=== PATIENT | male | born 1965 | race Caucasian/White ===

== ENCOUNTER → 2016-04-21 | Outpatient (REF) ==
--- NOTE | 2016-04-21 11:50 | DI ---
EXAM: Chest two view, frontal and lateral views. HISTORY: Annual employment screening. COMPARISON: 06/30/2014. FINDINGS: The heart size is normal. There is no pulmonary vascular congestion. The lungs are johnny r. No pleural effusion or pneumothorax is seen. No acute osseous abnormality identified. Since prior study, there has been no significant interval change. IMPRESSION: No acute cardiopulmonary process.
== END ==
LOC: RAD 10:54
DX: Z02.89 Encounter for other administrative examinations (principal)

== ENCOUNTER 2016-08-13 10:36 | Outpatient (CLI) ==
--- NOTE | 2016-08-13 11:04 | DI ---
EXAM: Three views of the right elbow HISTORY: Right elbow injury COMPARISON: None available FINDINGS: No acute fracture or dislocation is identified. There is no evidence of a joint effusion. An 8 mm ossicle projects anterior to the distal humerus on the lateral view. A 4 mm ossicle projects development team lead ior to the distal humerus on the lateral view. There is mild to moderate marginal osteophyte formati on of the radial head. There is mild to moderate marginal osteophyte formation of the medial aspect of the ulnotrochlear joint. IMPRESSION: No acute osseous abnormality identified. Ossicles suspicious for joint bodies. Mild to moderate degenerative joint disease.
== END 2016-08-13 10:37 | disposition home or self-care (01) ==
LOC: RAD 10:36
PROVIDERS: ATTEND Family Medicine
DX: S59.901A Unspecified injury of right elbow, initial encounter (principal)

== ENCOUNTER 2018-04-15 14:00 | Outpatient (RCR) ==
--- NOTE | 2018-03-17 16:23 | RS.OPPTDN ---
Subjective Date of Note: 03/17/18 Visit #: 4 Number of visits approved by Insurance: [id number] Date of Evaluation: 03/11/18 Payer Source: Workman's Comp Treatment Diagnosis: R elbow pain, DJD, elbow flex contracture, intraarticular loose bodies Current Subjective/complaints:: Patient says he has had soreness to the elbow with self stretching at home and here in PT. He says he has a 10# restriction lifting floor to chest for the R arm. He states that he is not wanting to hurry his therapy, but does want to get better soon so that he can return to as near "100%" as possible. He reports his follow up is 04/07/18. *Precautions: n/a - Heat/Cryotherapy Treatment: Hot Pack (15 mins over the biceps/elbow in extension stretch position in sitting) Interventions - Exercise/Activities/Manual Therapy Exercises/Activities: Patient receives passive stretching for R elbow flex/ext/ sup/pron. Elbow distraction for improving ROM multiple reps. Joint mobs for dorsal glides proximally and distally. Contract/relax techniques cycled with more ROM. 2# dumbell for static extension stretching for 20-30 sec intervals. Began 2# for sup/pron with stretches and elbow extension stretch with performing wrist curls/ext. Wrist/elbow twist up bar using 2# x 4 to encourage elbow extension. Total minutes of Exercise: 24 Manual Therapy: n/a HOME EXERCISE PROGRAM: instructed pt on retrograde massage to decrease edema, as well as gentle scar massage. Given written HEP including: sup/pronation, elbow flex resisted, isometric flex/ext contract relax - Charges Timed Code Treatment Minutes: 24 Total Treatment Time: 39 Procedures billed for this date of service:: hp, ex2 Assessment: Patient adam increased stretching and joint mobs today as well as some progressive activity. He is compliant with HEP at this time and is motivated to improve ROM and strength to return to routine for work and home. Patient Education: Education of diagnosis, Home Exercise Program, Education of Plan of Care Patient demonstrates compliance with HEP?: Yes Short Term Goals Goal #1: pt independent with initial HEP Goal to be met by: 04/01/18 Progress towards Goal:: Progressing Goal #2: Improve R elbow ROM flex 115 ext -8 Goal to be met by: 04/01/18 Progress towards Goal:: Progressing Goal #3: Improve strength R elbow 4-/5, ext 3/5 Goal to be met by: 04/01/18 Shelter Goals Goal #1: pt report ability to perform normal household activities with less pain Goal to be met by: 04/22/18 Goal #2: Improve R elbow ROM flex 120 ext -4 Goal to be met by: 04/22/18 Goal #3: Improve R UE strength 4 to 4+/5 Goal to be met by: 04/22/18 Goal #4: Edema R UE decreased equal to LUE. Goal to be met by: 04/22/18 Plan Dates of Shelter Goals: 04/22/18 Expiration date of current Insurance Approval:: 04/22/18 PLAN: Patient to continue with progressive stretching to the R UE to restore ROM and then advance to strengthening.
--- NOTE | 2018-03-19 16:45 | RS.OPPTDN ---
Subjective Date of Note: 03/19/18 Visit #: 5 Number of visits approved by Insurance: [id number] Date of Evaluation: 03/11/18 Payer Source: Workman's Comp Treatment Diagnosis: R elbow pain, DJD, elbow flex contracture, intraarticular loose bodies Current Subjective/complaints:: Patient states he has been self stretching at home and feels he is gaining motion to the R elbow. 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 *Precautions: n/a - Heat/Cryotherapy Treatment: Hot Pack (to the R elbow in extension stretch position with pt intermittently stretching x 15 mins) Interventions - Exercise/Activities/Manual Therapy Exercises/Activities: Patient receives passive stretching for R elbow flex/ext/ sup/pron. Elbow distraction for improving ROM multiple reps. Joint mobs for dorsal glides proximally and distally. Contract/relax techniques cycled with more ROM. 2# dumbell for static extension stretching for 20-30 sec intervals. Continued with 2# for sup/pron with stretches and elbow extension stretch with performing wrist curls/ext. Also, holding ball bilaterally behind head with 1 1 /2# cuff weight to the R wrist to stretch into flexion/extension x 5. Risk Control Product Liability Director and ROM measured at end of session. Total minutes of Exercise: 32 Manual Therapy: n/a HOME EXERCISE PROGRAM: instructed pt on retrograde massage to decrease edema, as well as gentle scar massage. Given written HEP including: sup/pronation, elbow flex resisted, isometric flex/ext contract relax - Charges Timed Code Treatment Minutes: 32 Total Treatment Time: 47 Procedures billed for this date of service:: hp, ex2 Assessment: Improved elbow extension AA today to -7 after therex. Patient pleased also with customer experience analyst strength at 2nd position for the R hand to 78-80# for 3 attempts. Patient continues to be compliant with HEP and stretching to improve symptoms to reach goals. Patient demonstrates compliance with HEP?: Yes Short Term Goals Goal #1: pt independent with initial HEP Goal to be met by: 04/01/18 Progress towards Goal:: Progressing Goal #2: Improve R elbow ROM flex 115 ext -8 Goal to be met by: 04/01/18 Progress towards Goal:: Progressing Goal #3: Improve strength R elbow 4-/5, ext 3/5 Goal to be met by: 04/01/18 Shelter Goals Goal #1: pt report ability to perform normal household activities with less pain Goal to be met by: 04/22/18 Goal #2: Improve R elbow ROM flex 120 ext -4 Goal to be met by: 04/22/18 Goal #3: Improve R UE strength 4 to 4+/5 Goal to be met by: 04/22/18 Goal #4: Edema R UE decreased equal to LUE. Goal to be met by: 04/22/18 Plan Dates of Shelter Goals: 04/22/18 Expiration date of current Insurance Approval:: 04/22/18 PLAN: Patient to continue stretching to the R UE to improve ROM and strength
--- NOTE | 2018-03-24 15:32 | RS.OPPTDN ---
Subjective Date of Note: 03/24/18 Visit #: 7 Number of visits approved by Insurance: [id number] Date of Evaluation: 03/11/18 Payer Source: Workman's Comp Treatment Diagnosis: R elbow pain, DJD, elbow flex contracture, intraarticular loose bodies Current Subjective/complaints:: Patient says he still has a lot of pain at the inside of the elbow and below the elbow. He agrees that he can straighten his arm better, but bending is still hard and hurts. Reports elbow popped twice while self stretching at home into extension without producing any symptoms. *Precautions: n/a - Heat/Cryotherapy Treatment: Hot Pack, Cryotherapy (15 mins to R elbow and over biceps prior to therex, then cold after therex x 15 mins) Interventions - Exercise/Activities/Manual Therapy Exercises/Activities: Patient receives passive stretching for R elbow flex/ext/ sup/pron. Elbow distraction for improving ROM multiple reps. Joint mobs for dorsal glides proximally and distally. Contract/relax techniques cycled with more ROM particularly for elbow flexion. 2# coronary clinical specialist ball for static extension stretching for 20-30 sec intervals. Continued with 2# for sup with stretches and elbow extension stretch with performing wrist curls/ext. Also, holding 3# wand bilaterally behind back for elbow and shoulder extension stretch. Wrist roll up bar with 3# x 2. 3# wand for bilateral elbow flexion bilaterally. Finished with cold pack. Total minutes of Exercise: 29 Manual Therapy: n/a HOME EXERCISE PROGRAM: instructed pt on retrograde massage to decrease edema, as well as gentle scar massage. Given written HEP including: sup/pronation, elbow flex resisted, isometric flex/ext contract relax - Charges Timed Code Treatment Minutes: 29 Total Treatment Time: 59 Procedures billed for this date of service:: hp, ex2 Assessment: Patient demo improved observable elbow supination and extension today with heat and static stretching near norm for extension and norm range for sup. Flexion active and passive produces increased pain. Limitation remains with range for this direction. Will measure Thursday. Patient Education: Home Exercise Program, Education of Plan of Care Patient demonstrates compliance with HEP?: Yes Short Term Goals Goal #1: pt independent with initial HEP Goal to be met by: 04/01/18 Progress towards Goal:: Progressing Goal #2: Improve R elbow ROM flex 115 ext -8 Goal to be met by: 04/01/18 Progress towards Goal:: Progressing Goal #3: Improve strength R elbow 4-/5, ext 3/5 Goal to be met by: 04/01/18 Needle Grinder Goals Goal #1: pt report ability to perform normal household activities with less pain Goal to be met by: 04/22/18 Goal #2: Improve R elbow ROM flex 120 ext -4 Goal to be met by: 04/22/18 Goal #3: Improve R UE strength 4 to 4+/5 Goal to be met by: 04/22/18 Goal #4: Edema R UE decreased equal to LUE. Goal to be met by: 04/22/18 Plan Dates of Needle Grinder Goals: 04/22/18 Expiration date of current Insurance Approval:: 04/22/18 PLAN: Continue progressive therex to the R elbow
--- NOTE | 2018-03-24 15:36 | RS.OPPTDN ---
Subjective Date of Note: 03/22/18 Visit #: 6 Number of visits approved by Insurance: na Date of Evaluation: 03/11/18 Payer Source: Workman's Comp Treatment Diagnosis: R elbow pain, DJD, elbow flex contracture, intraarticular loose bodies Current Subjective/complaints:: Patient says his elbow motion seems to be getting better. Reports continued soreness to the medial aspect of the R elbow. He says he has been stretching his arm both directions while sitting at [employer] yesterday. *Precautions: n/a - Heat/Cryotherapy Treatment: Hot Pack (longwise over the volar aspect of the R UE and then around the elbow x 20 mins) Interventions - Exercise/Activities/Manual Therapy Exercises/Activities: Patient receives passive stretching for R elbow flex/ext/ sup/pron. Elbow distraction for improving ROM multiple reps. Joint mobs for dorsal glides proximally and distally. Contract/relax techniques cycled with more ROM. 2# dumbell for static extension stretching for 20-30 sec intervals. Continued with 2# for sup/pron with stretches and elbow extension stretch with performing wrist curls/ext. Also, holding ball bilaterally behind head with 2# cuff weight to the R wrist to stretch into flexion/extension x 5. Wrist roll up bar with 2# x 2. Green tband for resisted elbow extension with elbow at side x 10. All therex in sitting. Total minutes of Exercise: 29 Manual Therapy: n/a HOME EXERCISE PROGRAM: instructed pt on retrograde massage to decrease edema, as well as gentle scar massage. Given written HEP including: sup/pronation, elbow flex resisted, isometric flex/ext contract relax - Charges Timed Code Treatment Minutes: 29 Total Treatment Time: 49 Procedures billed for this date of service:: hp, ex2 Assessment: Patient able to demo norm supination with static stretch using 2# dumbell. Improved elbow extension as well with continued self stretching and following contract/relax. He remains tender and sore along the medial aspect of the forearm and elbow with active elbow flexion and during stretching into elbow ext Patient Education: Home Exercise Program, Education of Plan of Care Patient demonstrates compliance with HEP?: Yes Short Term Goals Goal #1: pt independent with initial HEP Goal to be met by: 04/01/18 Progress towards Goal:: Progressing Goal #2: Improve R elbow ROM flex 115 ext -8 Goal to be met by: 04/01/18 Progress towards Goal:: Progressing Goal #3: Improve strength R elbow 4-/5, ext 3/5 Goal to be met by: 04/01/18 Progress towards Goal:: Progressing Security Intelligence Analyst Goals Goal #1: pt report ability to perform normal household activities with less pain Goal to be met by: 04/22/18 Goal #2: Improve R elbow ROM flex 120 ext -4 Goal to be met by: 04/22/18 Goal #3: Improve R UE strength 4 to 4+/5 Goal to be met by: 04/22/18 Goal #4: Edema R UE decreased equal to LUE. Goal to be met by: 04/22/18 Plan Dates of [facility] Goals: 04/22/18 Expiration date of current Insurance Approval:: 04/22/18 PLAN: Continue therex to the R elbow to improve ROM and strength
--- NOTE | 2018-03-26 15:33 | RS.OPPTDN ---
Subjective Date of Note: 03/26/18 Visit #: 8 Number of visits approved by Insurance: 3x6 Date of Evaluation: 03/11/18 Payer Source: Workman's Comp Treatment Diagnosis: R elbow pain, DJD, elbow flex contracture, intraarticular loose bodies Current Subjective/complaints:: Patient says he believes elbow motion may be better, but still having a lot of soreness to the inside of the elbow. Reports it hurts more to bend the arm than to straighten presently. *Precautions: n/a - Treatment Modality: Ultrasound Parameters/Method Applied: continuous @ 1.5 w/cm2 x 12 mins to the medial and lateral elbow and along the distal triceps tendon. Patient Position: Sitting - Heat/Cryotherapy Treatment: Hot Pack (15 mins to the R elbow in flexed position), Cryotherapy ( Patient requests cold pack to elbow after therex today (x 10 mins)) Interventions - Exercise/Activities/Manual Therapy Exercises/Activities: Concentration on stretching for R elbow flex/ext with contract/relax method. Stretch for supination and joint mobs after u/s. Total minutes of Exercise: 25 Manual Therapy: n/a HOME EXERCISE PROGRAM: instructed pt on retrograde massage to decrease edema, as well as gentle scar massage. Given written HEP including: sup/pronation, elbow flex resisted, isometric flex/ext contract relax - Objective Findings Observations,measurements,etc.: -3 passively, -6 actively. 113 degrees passively, 110 actively (AFTER THEREX) - Charges Timed Code Treatment Minutes: 25 Total Treatment Time: 25 Procedures billed for this date of service:: ex2, hp, u/s Assessment: Modification of treatment today adding u/s to assist with c/o's stiffness and soreness to the medial R elbow. He demo increased mobility to the elbow for flex and extension compared to last week. He appears to adam u/s well with verbalizing improved stiffness and motion. Patient Education: Home Exercise Program Comments: Education on ultrasound, benefits, indications, effects. Patient demonstrates compliance with HEP?: Yes Short Term Goals Goal #1: pt independent with initial HEP Goal to be met by: 04/01/18 Progress towards Goal:: Progressing Goal #2: Improve R elbow ROM flex 115 ext -8 Goal to be met by: 04/01/18 Progress towards Goal:: Partially Met Comments:: -6 to 113 today Goal #3: Improve strength R elbow 4-/5, ext 3/5 Goal to be met by: 04/01/18 Progress towards Goal:: Progressing Hand Decorator Goals Goal #1: pt report ability to perform normal household activities with less pain Goal to be met by: 04/22/18 Goal #2: Improve R elbow ROM flex 120 ext -4 Goal to be met by: 04/22/18 Goal #3: Improve R UE strength 4 to 4+/5 Goal to be met by: 04/22/18 Goal #4: Edema R UE decreased equal to LUE. Goal to be met by: 04/22/18 Plan Dates of Long-Term Goals: 04/22/18 Expiration date of current Insurance Approval:: 04/22/18 PLAN: Continue with u/s and progressive stretching
--- NOTE | 2018-03-29 15:26 | RS.OPPTDN ---
Subjective Date of Note: 03/29/18 Visit #: 9 Number of visits approved by Insurance: [id number] Date of Evaluation: 03/11/18 Payer Source: Workman's Comp Treatment Diagnosis: R elbow pain, DJD, elbow flex contracture, intraarticular loose bodies Current Subjective/complaints:: Patient c/o persistant R medial elbow pain. He says he feels u/s seemed to help. He says flexion still seems to be the hardest to perform (active and passive). *Precautions: n/a - Treatment Modality: Ultrasound Parameters/Method Applied: continuous @ 1.5 w/cm2 x 12 mins to the medial and lateral epicondyle prior to therex. Then pulsed @ 0.6 w/cm2 20% x 5 mins to the olecranon process after therex Patient Position: Sitting Interventions - Exercise/Activities/Manual Therapy Exercises/Activities: Concentration on stretching for R elbow flex/ext with contract/relax method. Stretch for supination and joint mobs after u/s. Ended with more stretching. Avoided other therex to allow u/s to assist with pain decrease and increase ROM with static stretching. Total minutes of Exercise: 22 Manual Therapy: n/a HOME EXERCISE PROGRAM: instructed pt on retrograde massage to decrease edema, as well as gentle scar massage. Given written HEP including: sup/pronation, elbow flex resisted, isometric flex/ext contract relax - Charges Timed Code Treatment Minutes: 39 Total Treatment Time: 39 Procedures billed for this date of service:: u/s, ex Assessment: Patient experiencing slight relief with u/s, but remains with tenderness and pain to the medial aspect of the R elbow. Omitted some therex today to allow modality to help with these symptoms. Patient Education: Education of Plan of Care Patient demonstrates compliance with HEP?: Yes Short Term Goals Goal #1: pt independent with initial HEP Goal to be met by: 04/01/18 Progress towards Goal:: Progressing Goal #2: Improve R elbow ROM flex 115 ext -8 Goal to be met by: 04/01/18 Progress towards Goal:: Partially Met Goal #3: Improve strength R elbow 4-/5, ext 3/5 Goal to be met by: 04/01/18 Progress towards Goal:: Progressing Converter Operator Goals Goal #1: pt report ability to perform normal household activities with less pain Goal to be met by: 04/22/18 Goal #2: Improve R elbow ROM flex 120 ext -4 Goal to be met by: 04/22/18 Goal #3: Improve R UE strength 4 to 4+/5 Goal to be met by: 04/22/18 Goal #4: Edema R UE decreased equal to LUE. Goal to be met by: 04/22/18 Plan Dates of Care Home Goals: 04/22/18 Expiration date of current Insurance Approval:: 04/22/18 PLAN: Patient to continue with u/s and focus on stretching for R UE.
--- NOTE | 2018-04-01 08:45 | RS.OPPTDN ---
Subjective Date of Note: 03/31/18 Visit #: 10 Number of visits approved by Insurance: 3x6 Date of Evaluation: 03/11/18 Payer Source: Workman's Comp Treatment Diagnosis: R elbow pain, DJD, elbow flex contracture, intraarticular loose bodies Current Subjective/complaints:: Patient says he believes u/s is helping reduce pain to the R elbow. He says it is not as tender to the medial aspect of the R elbow and seems to have ability to stretch more into extension. He says his main problem is adam A/P flexion, but continues to work on it routinely at home. *Precautions: n/a Pain Assessment - Pain Description Pain Location: R medial elbow Pain Description: Tightness, Aching - Treatment Modality: Ultrasound Parameters/Method Applied: continuous @ 1.5 w/cm2 x 12 mins to the R medial epicondyle region, then with elbow bent along the ulnar region Patient Position: Sitting - Heat/Cryotherapy Treatment: Hot Pack (15 mins over the R elbow and biceps in extension stretch position with intermittently holding 2#) Interventions - Exercise/Activities/Manual Therapy Exercises/Activities: Concentration on stretching for R elbow flex/ext with contract/relax method to gain mobility. Stretch for supination and joint mobs after u/s as well holding 2# dumbell for static stretches. Ended with more stretching and joint distraction. Continued to omit other therex to allow u/s to assist with pain decrease and increase ROM with static stretching. Total minutes of Exercise: 22 Manual Therapy: n/a HOME EXERCISE PROGRAM: instructed pt on retrograde massage to decrease edema, as well as gentle scar massage. Given written HEP including: sup/pronation, elbow flex resisted, isometric flex/ext contract relax - Charges Timed Code Treatment Minutes: 34 Total Treatment Time: 49 Procedures billed for this date of service:: hp, u/s, ex Assessment: Patient experiencing less tenderness and sensitivity to the R elbow after receiving previous u/s. He demo increased ability to relax with extension , but maintains mild to moderate tightness and pain with active and passive stretching into flexion. We are able to achieve full supination during static stretching and -2 degrees today with extension stretching. Will take more detailed measurements next session as these are approximate and through observation. Patient Education: Education of diagnosis, Home Exercise Program, Education of Plan of Care Patient demonstrates compliance with HEP?: Yes Short Term Goals Goal #1: pt independent with initial HEP Goal to be met by: 04/01/18 Progress towards Goal:: Progressing Goal #2: Improve R elbow ROM flex 115 ext -8 Goal to be met by: 04/01/18 Progress towards Goal:: Progressing Goal #3: Improve strength R elbow 4-/5, ext 3/5 Goal to be met by: 04/01/18 Progress towards Goal:: Progressing Shelter Goals Goal #1: pt report ability to perform normal household activities with less pain Goal to be met by: 04/22/18 Goal #2: Improve R elbow ROM flex 120 ext -4 Goal to be met by: 04/22/18 Goal #3: Improve R UE strength 4 to 4+/5 Goal to be met by: 04/22/18 Goal #4: Edema R UE decreased equal to LUE. Goal to be met by: 04/22/18 Plan Dates of Shelter Goals: 04/22/18 Expiration date of current Insurance Approval:: 04/22/18 PLAN: Patient to continue progressive therex to the R elbow to restore ROM
--- NOTE | 2018-04-02 13:23 | RS.OPPTDN ---
Subjective Date of Note: 04/02/18 Visit #: 11 Number of visits approved by Insurance: 18 Date of Evaluation: 03/11/18 Payer Source: Workman's Comp Treatment Diagnosis: R elbow pain, DJD, elbow flex contracture, intraarticular loose bodies Current Subjective/complaints:: Patient says, "I'm hanging in there." Reports he stretches his arm any chance he gets. He says he is going to look for a heat wrap or sleeve to put on his arm. States he is less tender along the elbow and feels u/s is what is improving his pain/tenderness. *Precautions: n/a - Treatment Modality: Ultrasound Parameters/Method Applied: continuous @ 1.5 w/cm2 x 12 mins to the medial aspect of the R elbow and along the triceps tendon - Heat/Cryotherapy Treatment: Hot Pack (20 mins to the anterior portion of the elbow then posterior in a stretch position) Interventions - Exercise/Activities/Manual Therapy Exercises/Activities: Continued concentration on stretching for R elbow flex/ ext with contract/relax method to gain mobility. Contract/relax techniques for elbow flex/ext. Stretch for supination and joint mobs after u/s as well holding 2# dumbell for static stretches. Ended with more stretching and joint distraction. Continued to omit other therex to allow u/s to assist with pain decrease and increase ROM with static stretching. Measurements taken. Total minutes of Exercise: 25 Manual Therapy: n/a HOME EXERCISE PROGRAM: instructed pt on retrograde massage to decrease edema, as well as gentle scar massage. Given written HEP including: sup/pronation, elbow flex resisted, isometric flex/ext contract relax - Charges Timed Code Treatment Minutes: 37 Total Treatment Time: 57 Procedures billed for this date of service:: hp, u/s, ex2 Assessment: -4 to 122 degrees AAROM after mobilization techniques and stretching. Patient experiencing less tenderness and pain at the medial aspect of the R elbow. Patient Education: Education of diagnosis, Home Exercise Program, Education of Plan of Care Patient demonstrates compliance with HEP?: Yes Short Term Goals Goal #1: pt independent with initial HEP Goal to be met by: 04/01/18 Progress towards Goal:: Progressing Goal #2: Improve R elbow ROM flex 115 ext -8 Goal to be met by: 04/01/18 Progress towards Goal:: Met Goal #3: Improve strength R elbow 4-/5, ext 3/5 Goal to be met by: 04/01/18 Progress towards Goal:: Progressing Chief Nursing Officer Goals Goal #1: pt report ability to perform normal household activities with less pain Goal to be met by: 04/22/18 Goal #2: Improve R elbow ROM flex 120 ext -4 Goal to be met by: 04/22/18 Progress towards goal: Partially Met Comments: Observed today, however this was AA after stretching Goal #3: Improve R UE strength 4 to 4+/5 Goal to be met by: 04/22/18 Progress towards goal: Progressing Goal #4: Edema R UE decreased equal to LUE. Goal to be met by: 04/22/18 Progress towards goal: Progressing Plan Dates of Halfway Goals: 04/22/18 Expiration date of current Insurance Approval:: 04/22/18 PLAN: Patient to continue progressing ROM
--- NOTE | 2018-04-06 11:16 | RS.OPPTDN ---
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 He says he continues to stretch his elbow periodically throughout the day. *Precautions: n/a Pain Assessment - Pain Description Pain Description: Tightness - Treatment Modality: Ultrasound (medial and lateral aspect of the R elbow x 12 mins) Parameters/Method Applied: 1.5 w/cm2 x 12 mins continuous - Heat/Cryotherapy Treatment: Hot Pack (anterior/posterior R UE x 20 mins in extension stretch position) Interventions - Exercise/Activities/Manual Therapy Exercises/Activities: Continued concentration on stretching for R elbow flex/ ext with contract/relax method to gain mobility. Stretch for supination and joint mobs after u/s as well holding 2# dumbell for static stretches. Ended with more stretching and joint distraction. 3# cuff on end of wand for the R elbow to stretch behind the back. Continued to omit other therex to allow u/s to assist with pain decrease and increase ROM with static stretching. Total minutes of Exercise: 26 Manual Therapy: n/a HOME EXERCISE PROGRAM: instructed pt on retrograde massage to decrease edema, as well as gentle scar massage. Given written HEP including: sup/pronation, elbow flex resisted, isometric flex/ext contract relax - Charges Timed Code Treatment Minutes: 38 Total Treatment Time: 58 Procedures billed for this date of service:: hp, u/s, ex2 Assessment: Patient demo improved adam for ROM and stretching for R flexion and extension of elbow. He is consistent with home stretching to gain normal ranges. Decreased pain and tenderness noted at the medial aspect of the elbow and triceps tendon post u/s. Patient Education: Home Exercise Program Patient demonstrates compliance with HEP?: Yes Short Term Goals Goal #1: pt independent with initial HEP Goal to be met by: 04/01/18 Progress towards Goal:: Progressing Goal #2: Improve R elbow ROM flex 115 ext -8 Goal to be met by: 04/01/18 Progress towards Goal:: Met Goal #3: Improve strength R elbow 4-/5, ext 3/5 Goal to be met by: 04/01/18 Progress towards Goal:: Met Comments:: demo this week Retirement Goals Goal #1: pt report ability to perform normal household activities with less pain Goal to be met by: 04/22/18 Progress towards goal: Progressing Goal #2: Improve R elbow ROM flex 120 ext -4 Goal to be met by: 04/22/18 Progress towards goal: Partially Met Comments: Previously met AA after stretching, not consistently met Goal #3: Improve R UE strength 4 to 4+/5 Goal to be met by: 04/22/18 Progress towards goal: Progressing Goal #4: Edema R UE decreased equal to LUE. Goal to be met by: 04/22/18 Progress towards goal: Progressing Plan Dates of Yard Inspector Goals: 04/22/18 Expiration date of current Insurance Approval:: 04/22/18 PLAN: Patient to continue with aggressive stretching for the R UE. He is to return to ortho this week.
--- NOTE | 2018-04-08 15:30 | RS.OPPTDN ---
Subjective Date of Note: 04/08/18 Visit #: 13 Number of visits approved by Insurance: [id number] Date of Evaluation: 03/11/18 Payer Source: [email or web address] Treatment Diagnosis: R elbow pain, DJD, elbow flex contracture, intraarticular loose bodies Current Subjective/complaints:: Patient says he had a good ortho follow up. Reports xray appears to be showing normal healing as it was not addressed. Reports he now has a 20# restriction for the R UE and he is pleased with his motion at this point. Shankar says has ordered BIW until May 31 (next follow up). Will bring his script in tomorrow to be submitted to [facility]. *Precautions: n/a - Heat/Cryotherapy Treatment: Hot Pack (anterior/posterior R UE in extension stretch position x 20 mins) Interventions - Exercise/Activities/Manual Therapy Exercises/Activities: Focused on extension of the R elbow and supination. Stretching also for flexion. Slowly increasing strengthening. Joint mobilization and elbow joint distraction, static stretching for extension using 4# dumbell down at side. Roll up/down bar with 6# x 4. Multigym for forward punches 10# x 10reps. Bilateral lifting 15# weighted box from trunk to floor to increase elbow extension x 8 reps receiving instruction also for proper body mechanics and avoid bending at his back. Total minutes of Exercise: 33 Manual Therapy: n/a HOME EXERCISE PROGRAM: instructed pt on retrograde massage to decrease edema, as well as gentle scar massage. Given written HEP including: sup/pronation, elbow flex resisted, isometric flex/ext contract relax - Charges Timed Code Treatment Minutes: 33 Total Treatment Time: 53 Procedures billed for this date of service:: marifer, ex2 Assessment: Patient had good report from follow up and has an order to continue treatments BIW until 05/31/18, which is his next appt. He is pleased so far with progress, but desires to gain more mobility if possible and strength to prepare him to return to work. He demo progress with gaining elbow extension throughout stretches today and adam all progressive strengthening well without c/ os. Patient Education: Body/Joint mechanics, Home Exercise Program, Education of Plan of Care Patient demonstrates compliance with HEP?: Yes Short Term Goals Goal #1: pt independent with initial HEP Goal to be met by: 04/01/18 Progress towards Goal:: Progressing Goal #2: Improve R elbow ROM flex 115 ext -8 Goal to be met by: 04/01/18 Progress towards Goal:: Met Goal #3: Improve strength R elbow 4-/5, ext 3/5 Goal to be met by: 04/01/18 Progress towards Goal:: Met Porcelain Enameler Goals Goal #1: pt report ability to perform normal household activities with less pain Goal to be met by: 04/22/18 Progress towards goal: Progressing Goal #2: Improve R elbow ROM flex 120 ext -4 Goal to be met by: 04/22/18 Progress towards goal: Partially Met (Patient has recently met flexion goal and does meet extension after stretching) Goal #3: Improve R UE strength 4 to 4+/5 Goal to be met by: 04/22/18 Progress towards goal: Progressing Goal #4: Edema R UE decreased equal to LUE. Goal to be met by: 04/22/18 Progress towards goal: Progressing Plan Dates of Porcelain Enameler Goals: 04/22/18 Expiration date of current Insurance Approval:: 04/22/18 PLAN: Patient to continue with new order BIW. Will submit to work comp.
--- NOTE | 2018-04-09 15:43 | RS.OPPTDN ---
Subjective Date of Note: 04/09/18 Visit #: 14 Number of visits approved by Insurance: 18 Date of Evaluation: 03/11/18 Payer Source: Workman's Comp Treatment Diagnosis: R elbow pain, DJD, elbow flex contracture, intraarticular loose bodies Current Subjective/complaints:: Patient says he has felt no increase in symptoms from progressing therex yesterday. He says that he feels he is gaining elbow extension through PT sessions. He says area of pain remains mostly focused along the inside of his R elbow (pointing to ulnar nerve). *Precautions: n/a - Heat/Cryotherapy Treatment: Hot Pack (anterior/posterior R UE x 15 mins in extension stretch position) Interventions - Exercise/Activities/Manual Therapy Exercises/Activities: Focused on extension of the R elbow and supination. Stretching also for flexion. Slowly increasing strengthening. Joint mobilization and elbow joint distraction, static stretching for extension using 4# dumbell down at side. Roll up/down bar with 6# x 4. Blue tband for elbow extension, horizontal bilateral ABD to accentuate extension, 5# cuff on R wrist holding ball behind head for bilateral elbow flexion/extension, holding 5# wtd therapy wand behind back to stretch for elbow extension. Bilateral lifting 15 # weighted box from trunk to floor to increase elbow extension x 10 reps receiving instruction also for proper body mechanics and avoid bending at his back. Measurements taken. Total minutes of Exercise: 32 Manual Therapy: n/a HOME EXERCISE PROGRAM: instructed pt on retrograde massage to decrease edema, as well as gentle scar massage. Given written HEP including: sup/pronation, elbow flex resisted, isometric flex/ext contract relax - Objective Findings Observations,measurements,etc.: 124 degrees flexion actively and -5/6 degrees actively after stretching, -2 degrees with static stretch. - Charges Timed Code Treatment Minutes: 32 Total Treatment Time: 47 Procedures billed for this date of service:: hp, ex2 Assessment: Patient presents continuation order BIW. He is encouraged to continue aggressive streching at home. He demo continued improvement with ROM especially with thermotherapy and stretching/joint mobs here. Progressing well with strengthening exercises also. Patient Education: Education of Plan of Care Patient demonstrates compliance with HEP?: Yes Short Term Goals Goal #1: pt independent with initial HEP Goal to be met by: 04/01/18 Progress towards Goal:: Progressing Goal #2: Improve R elbow ROM flex 115 ext -8 Goal to be met by: 04/01/18 Progress towards Goal:: Met (Measured on 04/09/18 measuring -5/-6 to 124 degrees) Goal #3: Improve strength R elbow 4-/5, ext 3/5 Goal to be met by: 04/01/18 Progress towards Goal:: Met Retort Feeder Ground [employer] Goals Goal #1: pt report ability to perform normal household activities with less pain Goal to be met by: 04/22/18 Progress towards goal: Progressing Goal #2: Improve R elbow ROM flex 120 ext -4 Goal to be met by: 04/22/18 Progress towards goal: Partially Met (Patient has recently met flexion goal and does meet extension after stretching) Goal #3: Improve R UE strength 4 to 4+/5 Goal to be met by: 04/22/18 Progress towards goal: Progressing Goal #4: Edema R UE decreased equal to LUE. Goal to be met by: 04/22/18 Progress towards goal: Progressing Plan Dates of Retort Feeder Ground [employer] Goals: 04/22/18 Expiration date of current Insurance Approval:: 04/22/18 PLAN: Continue BIW to gain ROM consistently and independently for R UE for extension and strength to assist him in returning to work.
--- NOTE | 2018-04-13 10:51 | RS.OPPTDN ---
Subjective Date of Note: 04/12/18 Visit #: 15 Number of visits approved by Insurance: continuation order, but is approved for 18 currently Date of Evaluation: 03/11/18 Payer Source: Workman's Comp Treatment Diagnosis: R elbow pain, DJD, elbow flex contracture, intraarticular loose bodies Current Subjective/complaints:: Patient says his arm is "staying straighter." Reports he is able to bend his elbow with a little less pain. *Precautions: n/a - Heat/Cryotherapy Treatment: Hot Pack (anterior/posterior R UE x 15 mins in sitting) Interventions - Exercise/Activities/Manual Therapy Exercises/Activities: Stretching for extension/supination for R UE. Stretching also for flexion. Slowly increasing strengthening. Joint mobilization and elbow joint distraction, static stretching for extension using 4# dumbell down at side. Roll up/down bar with 6# x 4. Blue tband for elbow extension, horizontal bilateral ABD to accentuate extension, 5# cuff on R wrist holding ball behind head for bilateral elbow flexion/extension, holding 5# wtd therapy wand behind back to stretch for elbow extension. Bilateral lifting 15# weighted box from trunk to floor to increase elbow extension x 10 reps receiving instruction also for proper body mechanics and avoid bending at his back. Multi gym for 10# forward punches and for biceps x 10 reps. Ended with wall push ups with hands at shoulder width and then with hands together. Measurements taken. Total minutes of Exercise: 29 Manual Therapy: n/a HOME EXERCISE PROGRAM: instructed pt on retrograde massage to decrease edema, as well as gentle scar massage. Given written HEP including: sup/pronation, elbow flex resisted, isometric flex/ext contract relax - Charges Timed Code Treatment Minutes: 29 Total Treatment Time: 44 Procedures billed for this date of service:: hp, ex2 Assessment: Continued improvement with progressed activity. He is presenting with more consistent elbow extension WFL. Less tender along ulnar nerve as well during most exercises. Patient Education: Home Exercise Program, Education of Plan of Care Patient demonstrates compliance with HEP?: Yes Short Term Goals Goal #1: pt independent with initial HEP Goal to be met by: 04/01/18 Progress towards Goal:: Progressing Goal #2: Improve R elbow ROM flex 115 ext -8 Goal to be met by: 04/01/18 Progress towards Goal:: Met (Measured on 04/09/18 measuring -5/-6 to 124 degrees) Goal #3: Improve strength R elbow 4-/5, ext 3/5 Goal to be met by: 04/01/18 Progress towards Goal:: Met [facility] Goals Goal #1: pt report ability to perform normal household activities with less pain Goal to be met by: 04/22/18 Progress towards goal: Progressing Goal #2: Improve R elbow ROM flex 120 ext -4 Goal to be met by: 04/22/18 Progress towards goal: Partially Met (Patient has recently met flexion goal and does meet extension after stretching) Goal #3: Improve R UE strength 4 to 4+/5 Goal to be met by: 04/22/18 Progress towards goal: Progressing Goal #4: Edema R UE decreased equal to LUE. Goal to be met by: 04/22/18 Progress towards goal: Progressing Plan Dates of Mcfp Goals: 04/22/18 Expiration date of current Insurance Approval:: 04/22/18 PLAN: Continue progressing strengthening to the R UE
--- NOTE | 2018-04-15 15:27 | RS.OPPTDN ---
Subjective Date of Note: 04/15/18 Visit #: 16 Number of visits approved by Insurance: 18 Date of Evaluation: 03/11/18 Payer Source: Work[employer]'s [employer] Treatment Diagnosis: R elbow pain, DJD, elbow flex contracture, intraarticular loose bodies Current Subjective/complaints:: Patient says he is still working on HEP. States he continues to feel soreness at the medial R elbow and points to ulnar nerve tunnel with bending his elbow and at times with extension. *Precautions: n/a - Heat/Cryotherapy Treatment: Hot Pack (surrounding the R elbow/biceps in extension stretch position x 15 mins) Interventions - Exercise/Activities/Manual Therapy Exercises/Activities: Stretching for passive extension/supination for R UE. Stretching also for flexion. Patient holding 4# dumbell for static streching for the above directions. Joint mobilization and elbow joint distraction. 4# dumbell for wrist flex/ext x 12 reps. Holding 4# dumbell at side for extension. Roll up/down bar with 6# x 4 reps. Blue tband for elbow extension/ flexion, horizontal bilateral ABD to accentuate extension, 5# cuff on R wrist holding ball behind head for bilateral elbow flexion/extension, holding 5# wtd therapy wand behind back to stretch for elbow extension. Multi gym for 10# forward punches and for biceps/triceps x 10 reps. Ended with wall push ups with hands at shoulder width and then with hands together. Total minutes of Exercise: 35 Manual Therapy: n/a HOME EXERCISE PROGRAM: instructed pt on retrograde massage to decrease edema, as well as gentle scar massage. Given written HEP including: sup/pronation, elbow flex resisted, isometric flex/ext contract relax - Charges Timed Code Treatment Minutes: 35 Total Treatment Time: 50 Procedures billed for this date of service:: hp, ex2 Assessment: Patient progressing with end range extension, but does show more limited elbow flexion today possibly due to drop in colder temperatures. He continues to consistently perform HEP and does not intend to return to work at the job he previously had due to his limitations. Patient Education: Education of diagnosis, Home Exercise Program, Education of Plan of Care Patient demonstrates compliance with HEP?: Yes Short Term Goals Goal #1: pt independent with initial HEP Goal to be met by: 04/01/18 Progress towards Goal:: Progressing Goal #2: Improve R elbow ROM flex 115 ext -8 Goal to be met by: 04/01/18 Progress towards Goal:: Met (Measured on 04/09/18 measuring -5/-6 to 124 degrees) Goal #3: Improve strength R elbow 4-/5, ext 3/5 Goal to be met by: 04/01/18 Progress towards Goal:: Met [facility] Goals Goal #1: pt report ability to perform normal household activities with less pain Goal to be met by: 04/22/18 Progress towards goal: Progressing Goal #2: Improve R elbow ROM flex 120 ext -4 Goal to be met by: 04/22/18 Progress towards goal: Partially Met (Patient has recently met flexion goal and does meet extension after stretching) Goal #3: Improve R UE strength 4 to 4+/5 Goal to be met by: 04/22/18 Progress towards goal: Progressing Goal #4: Edema R UE decreased equal to LUE. Goal to be met by: 04/22/18 Progress towards goal: Progressing Plan Dates of Judo Teacher Goals: 04/22/18 Expiration date of current Insurance Approval:: 04/22/18 PLAN: Continue x 2 more sessions progressing ROM and strength.
== END 2018-04-15 23:59 ==
PROVIDERS: ATTEND Neuromusculoskeletal Medicine, Sports Medicine
DX: M25.521 Pain in right elbow (principal); M25.621 Stiffness of right elbow, not elsewhere classified; M62.81 Muscle weakness (generalized); M25.421 Effusion, right elbow; M19.021 Primary osteoarthritis, right elbow; Z98.890 Other specified postprocedural states

== ENCOUNTER 2018-05-13 13:00 | Outpatient (RCR) ==
--- NOTE | 2018-04-22 16:34 | RS.OPPTDN ---
Subjective Date of Note: 04/19/18 Visit #: 17 Number of visits approved by Insurance: 18 Date of Evaluation: 03/11/18 Payer Source: Workman's Comp Treatment Diagnosis: R elbow pain, DJD, elbow flex contracture, intraarticular loose bodies Current Subjective/complaints:: Patient says he is feeling less tenderness at the R medial elbow (along ulnar nerve region), but is achy and stiff today he feels weather related. *Precautions: n/a Interventions - Exercise/Activities/Manual Therapy Exercises/Activities: Stretching for passive extension/supination for R UE. Stretching also for flexion. Patient holding 5# dumbell for static streching for the above directions. Joint mobilization and elbow joint distraction. 5# dumbell for wrist flex/ext x 12 reps. Holding 5# dumbell at side for extension. Roll up/down bar with 6# x 4 reps. Blue tband for elbow extension/ flexion, horizontal bilateral ABD to accentuate extension, and forward punches, 4# cuff on R hand and bouncing ball against the wall high level and then on floor x 20 reps., wall push ups and self stretching for both elbow flexion/ extension. Multi gym for 10# forward punches and for biceps/triceps x 10 reps. Lifting 25# box with good body mechanics from trunk to floor level 2x 15reps. Total minutes of Exercise: 45 Manual Therapy: n/a HOME EXERCISE PROGRAM: instructed pt on retrograde massage to decrease edema, as well as gentle scar massage. Given written HEP including: sup/pronation, elbow flex resisted, isometric flex/ext contract relax - Charges Timed Code Treatment Minutes: 45 Total Treatment Time: 45 Procedures billed for this date of service:: ex3 Assessment: Patient is improving demo increased clinical program coordinator strength to 80# from 65# a few weeks ago. He continues to have tenderness at the ulnar nerve region. He is demo increased strength with all therex building on improved elbow extension. Patient Education: Education of diagnosis, Home Exercise Program, Education of Plan of Care Patient demonstrates compliance with HEP?: Yes Short Term Goals Goal #1: pt independent with initial HEP Goal to be met by: 04/01/18 Progress towards Goal:: Progressing Goal #2: Improve R elbow ROM flex 115 ext -8 Goal to be met by: 04/01/18 Progress towards Goal:: Met (Measured on 04/09/18 measuring -5/-6 to 124 degrees) Goal #3: Improve strength R elbow 4-/5, ext 3/5 Goal to be met by: 04/01/18 Progress towards Goal:: Met Ladle Cleaner Goals Goal #1: pt report ability to perform normal household activities with less pain Goal to be met by: 04/22/18 Progress towards goal: Progressing Goal #2: Improve R elbow ROM flex 120 ext -4 Goal to be met by: 04/22/18 Progress towards goal: Partially Met (Patient has recently met flexion goal and does meet extension after stretching) Goal #3: Improve R UE strength 4 to 4+/5 Goal to be met by: 04/22/18 Progress towards goal: Progressing Goal #4: Edema R UE decreased equal to LUE. Goal to be met by: 04/22/18 Progress towards goal: Progressing Plan Dates of Mcc Goals: 04/22/18 Expiration date of current Insurance Approval:: 04/22/18 PLAN: Continue with further strengthening to the R UE
--- NOTE | 2018-04-23 15:28 | RS.OPPTDN ---
Subjective Date of Note: 04/22/18 Visit #: 18 Number of visits approved by Insurance: New approval per continuation order BIW Date of Evaluation: 03/11/18 Payer Source: Workman's Comp Treatment Diagnosis: R elbow pain, DJD, elbow flex contracture, intraarticular loose bodies Current Subjective/complaints:: Patient offers no new c/os. He says he seems to be able to use the arm more with daily tasks and with helping his son at his new home. *Precautions: n/a Interventions - Exercise/Activities/Manual Therapy Exercises/Activities: Stretching for passive extension/supination for R UE. Stretching also for flexion. Patient holding 5# dumbell for static streching for the above directions. Joint mobilization and elbow joint distraction. 5# dumbell for wrist flex/ext x 12 reps. Holding 5# dumbell at side for extension. Roll up/down bar with 6# x 4 reps. Blue tband for elbow extension/ flexion, horizontal bilateral ABD to accentuate extension, and forward punches, 4# cuff on R hand and bouncing ball against the wall high level and then on floor x 20 reps., wall push ups and self stretching for both elbow flexion/ extension. Multi gym for 10# forward punches and for biceps/triceps x 10 reps. Lifting 25# box with good body mechanics from trunk to floor level 2x 15reps. Total minutes of Exercise: 40 Manual Therapy: n/a HOME EXERCISE PROGRAM: instructed pt on retrograde massage to decrease edema, as well as gentle scar massage. Given written HEP including: sup/pronation, elbow flex resisted, isometric flex/ext contract relax - Charges Timed Code Treatment Minutes: 40 Total Treatment Time: 40 Procedures billed for this date of service:: ex3 Assessment: Patient demo 45/80 or 44% impairment compared to 37/80 or 54% at [facility] on UE Functional Index. Greatest limitations remain with "carrying small suitcase, opening a jar, vacuuming, and pushing up from chair." He has had 3 areas in which he has no difficulty now. Inspector Water Pollution Control increased to 80# on the R and 100 # on the L. This is up by 15# from last measurment ~1 1/2 weeks ago. Patient demonstrates compliance with HEP?: Yes Short Term Goals Goal #1: pt independent with initial HEP Goal to be met by: 04/01/18 Progress towards Goal:: Progressing Goal #2: Improve R elbow ROM flex 115 ext -8 Goal to be met by: 04/01/18 Progress towards Goal:: Met (Measured on 04/09/18 measuring -5/-6 to 124 degrees) Goal #3: Improve strength R elbow 4-/5, ext 3/5 Goal to be met by: 04/01/18 Progress towards Goal:: Met Jail Goals Goal #1: pt report ability to perform normal household activities with less pain Goal to be met by: 04/22/18 Progress towards goal: Progressing Goal #2: Improve R elbow ROM flex 120 ext -4 Goal to be met by: 04/22/18 Progress towards goal: Partially Met (Patient has recently met flexion goal and does meet extension after stretching) Goal #3: Improve R UE strength 4 to 4+/5 Goal to be met by: 04/22/18 Progress towards goal: Met Goal #4: Edema R UE decreased equal to LUE. Goal to be met by: 04/22/18 Progress towards goal: Progressing Plan Dates of Jail Goals: 04/22/18 Expiration date of current Insurance Approval:: 04/22/18 PLAN: Patient has new continuation BIW dated 04/07/18 x 6 weeks and authorized by work comp on 04/20/18
--- NOTE | 2018-04-27 15:54 | RS.OPPTDN ---
Subjective Date of Note: 04/27/18 Visit #: 19 Number of visits approved by Insurance: 30 with continuation Date of Evaluation: 03/11/18 Payer Source: Workman's Comp Treatment Diagnosis: R elbow pain, DJD, elbow flex contracture, intraarticular loose bodies Current Subjective/complaints:: Patient c/o increased R lateral elbow pain. He says he was helping his son with removing joo and is sore. He says initially his elbow had decreased extension, but has improved throughout the day. He requests heat today to decrease sx. *Precautions: n/a - Heat/Cryotherapy Treatment: Hot Pack (surrounding the lateral surface of the R UE x 15 mins) Interventions - Exercise/Activities/Manual Therapy Exercises/Activities: Stretching for passive extension/supination for R UE. Stretching also for flexion. Patient holding 5# dumbell for static streching for the above directions. Joint mobilization and elbow joint distraction. 5# dumbell for wrist flex/ext x 12 reps. Holding 5# dumbell at side for extension. Blue tband for triceps/biceps, and horizontal abd in standing. Total minutes of Exercise: 22 Manual Therapy: n/a HOME EXERCISE PROGRAM: instructed pt on retrograde massage to decrease edema, as well as gentle scar massage. Given written HEP including: sup/pronation, elbow flex resisted, isometric flex/ext contract relax - Charges Timed Code Treatment Minutes: 22 Total Treatment Time: 37 Procedures billed for this date of service:: tutu caicedo Assessment: Patient with increased pain from over the weekend performing home remodeling tasks with son. He received heat today to relax and improve pain as well as to adam therex better. Modified therex activity today. Patient Education: Activity Modification Short Term Goals Goal #1: pt independent with initial HEP Goal to be met by: 04/01/18 Progress towards Goal:: Progressing Goal #2: Improve R elbow ROM flex 115 ext -8 Goal to be met by: 04/01/18 Progress towards Goal:: Met (Measured on 04/09/18 measuring -5/-6 to 124 degrees) Goal #3: Improve strength R elbow 4-/5, ext 3/5 Goal to be met by: 04/01/18 Progress towards Goal:: Met Mcfp Goals Goal #1: pt report ability to perform normal household activities with less pain Goal to be met by: 04/22/18 Progress towards goal: Progressing Goal #2: Improve R elbow ROM flex 120 ext -4 Goal to be met by: 04/22/18 Progress towards goal: Partially Met (Patient has recently met flexion goal and does meet extension after stretching) Goal #3: Improve R UE strength 4 to 4+/5 Goal to be met by: 04/22/18 Progress towards goal: Met Goal #4: Edema R UE decreased equal to LUE. Goal to be met by: 04/22/18 Progress towards goal: Progressing Plan Dates of Computer Aide Goals: 06/03/18 Expiration date of current Insurance Approval:: 06/03/18 PLAN: Continue progressive therex to the R UE
--- NOTE | 2018-04-29 15:37 | RS.OPPTDN ---
Subjective Date of Note: 04/29/18 Visit #: 20 Number of visits approved by Insurance: 30 Date of Evaluation: 03/11/18 Payer Source: Workman's Comp Treatment Diagnosis: R elbow pain, DJD, elbow flex contracture, intraarticular loose bodies Current Subjective/complaints:: Patient says his recent elevation in elbow pain has decreased. He says his elbow popped again the other day and provided relief. He says he feels "my arm is not as drawed up." *Precautions: n/a Interventions - Exercise/Activities/Manual Therapy Exercises/Activities: Stretching for passive extension/supination for R UE. Stretching also for flexion. Patient holding 5# dumbell for static streching for the above directions. Joint mobilization and elbow joint distraction. Coats tband for horizontal shoulder abd, 5# PREs for sup/pron, punches, wrist roll up bar with 6#, 6# wand for bilateral shoulder flexion overhead and then 7 # for triceps, Holding 5# dumbell at side for extension. Multigym for forward punches 10#, biceps 10# 2x10, wall push ups x 10. Total minutes of Exercise: 38 Manual Therapy: n/a HOME EXERCISE PROGRAM: instructed pt on retrograde massage to decrease edema, as well as gentle scar massage. Given written HEP including: sup/pronation, elbow flex resisted, isometric flex/ext contract relax - Charges Timed Code Treatment Minutes: 38 Total Treatment Time: 38 Procedures billed for this date of service:: ex3 Assessment: Improved pain level and adam to return of routine therex and multigym activities with also being able to increase weights slightly while maintaining improved elbow extension. Patient Education: Home Exercise Program Patient demonstrates compliance with HEP?: Yes Short Term Goals Goal #1: pt independent with initial HEP Goal to be met by: 04/01/18 Progress towards Goal:: Progressing Goal #2: Improve R elbow ROM flex 115 ext -8 Goal to be met by: 04/01/18 Progress towards Goal:: Met (Measured on 04/09/18 measuring -5/-6 to 124 degrees) Goal #3: Improve strength R elbow 4-/5, ext 3/5 Goal to be met by: 04/01/18 Progress towards Goal:: Met Penitentiary Goals Goal #1: pt report ability to perform normal household activities with less pain Goal to be met by: 04/22/18 Progress towards goal: Progressing Goal #2: Improve R elbow ROM flex 120 ext -4 Goal to be met by: 04/22/18 Progress towards goal: Partially Met (Patient has recently met flexion goal and does meet extension after stretching) Goal #3: Improve R UE strength 4 to 4+/5 Goal to be met by: 04/22/18 Progress towards goal: Met Goal #4: Edema R UE decreased equal to LUE. Goal to be met by: 04/22/18 Progress towards goal: Progressing Plan Dates of Pairer Substandard Goals: 06/03/18 Expiration date of current Insurance Approval:: 06/03/18 PLAN: Patient continue for progressive therex to the R UE
--- NOTE | 2018-05-03 15:17 | RS.OPPTDN ---
Subjective Date of Note: 05/03/18 Visit #: 20 Number of visits approved by Insurance: 28 Date of Evaluation: 03/11/18 Payer Source: Workman's Comp Treatment Diagnosis: R elbow pain, DJD, elbow flex contracture, intraarticular loose bodies Current Subjective/complaints:: Patient c/o increased pain to the R lateral elbow (along the pronator mm belly). 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 Also, admits that the colder weather has affected his pain as well. *Precautions: n/a - Treatment Modality: Ultrasound Parameters/Method Applied: Continuous @ 1.5 w/cm2 x 10 mins along the R pronator teres prior to therex Patient Position: Sitting Interventions - Exercise/Activities/Manual Therapy Exercises/Activities: Stretching for passive extension/supination for R UE. Stretching also for flexion. Patient holding 5# dumbell for static streching for the above directions. Joint mobilization and elbow joint distraction. 5# dumbell for wrist extension/flexion, ulnar/radial deviation x 10. Wrist roll up bar with 7#, 6# wand for bilateral shoulder flexion overhead and then 7# for triceps, 7# bar behind back for elbow/shoulder extension for static stretch. Holding 5# dumbell at side for extension. Multigym for forward punches 10#, biceps, triceps 10# 2x10, wall push ups x 10. Total minutes of Exercise: 33 Manual Therapy: n/a HOME EXERCISE PROGRAM: instructed pt on retrograde massage to decrease edema, as well as gentle scar massage. Given written HEP including: sup/pronation, elbow flex resisted, isometric flex/ext contract relax - Charges Timed Code Treatment Minutes: 43 Total Treatment Time: 43 Procedures billed for this date of service:: ex2, u/s Assessment: Patient presents with increased R lateral UE pain indicated at the pronator teres area. He did have slight relief with u/s, but was irritated by some therex performed today. He was encouraged to be aware and avoid if possible repetitive work which involves pronation to allow rest and u/s to assist with pain relief. Patient Education: Activity Modification Patient demonstrates compliance with HEP?: Yes Short Term Goals Goal #1: pt independent with initial HEP Goal to be met by: 04/01/18 Progress towards Goal:: Progressing Goal #2: Improve R elbow ROM flex 115 ext -8 Goal to be met by: 04/01/18 Progress towards Goal:: Met (Measured on 04/09/18 measuring -5/-6 to 124 degrees) Goal #3: Improve strength R elbow 4-/5, ext 3/5 Goal to be met by: 04/01/18 Progress towards Goal:: Met Slot Machine Key Person Goals Goal #1: pt report ability to perform normal household activities with less pain Goal to be met by: 04/22/18 Progress towards goal: Progressing Goal #2: Improve R elbow ROM flex 120 ext -4 Goal to be met by: 04/22/18 Progress towards goal: Partially Met (Patient has recently met flexion goal and does meet extension after stretching) Goal #3: Improve R UE strength 4 to 4+/5 Goal to be met by: 04/22/18 Progress towards goal: Met Goal #4: Edema R UE decreased equal to LUE. Goal to be met by: 04/22/18 Progress towards goal: Progressing Plan Dates of Detention Goals: 06/03/18 Expiration date of current Insurance Approval:: 06/03/18 PLAN: Continue for elbow extension improvement and strength to the R UE.
--- NOTE | 2018-05-06 15:05 | RS.OPPTDN ---
Subjective Date of Note: 05/06/18 Visit #: 22 Number of visits approved by Insurance: 30 Date of Evaluation: 03/11/18 Payer Source: Workman's Comp Treatment Diagnosis: R elbow pain, DJD, elbow flex contracture, intraarticular loose bodies Current Subjective/complaints:: Patient says the soreness to the R lateral elbow is better, but still present. He says he will have to work on some remodeling activities over the weekend and may have to avoid some tasks. *Precautions: n/a - Treatment Modality: Ultrasound Parameters/Method Applied: continuous @ 1.5 w/cm2 x 12 mins to the R lateral forearm and over the pronator teres Patient Position: Sitting Interventions - Exercise/Activities/Manual Therapy Exercises/Activities: Stretching for passive extension/supination for R UE. Stretching also for flexion. Patient holding 5# dumbell for static streching for the above directions. Joint mobilization and elbow joint distraction. 5# dumbell for wrist extension/flexion, ulnar/radial deviation x 10. Holding 5# dumbell at side for extension. Multigym for forward punches 10#, biceps, triceps 10# 2x10, wall push ups x 10. Lifting 20# box with handles trunk level to overhead with proper body mechanics and being monitored for cues for correction x 7, trunk to floor 20# x 7. Total minutes of Exercise: 31 Manual Therapy: n/a HOME EXERCISE PROGRAM: instructed pt on retrograde massage to decrease edema, as well as gentle scar massage. Given written HEP including: sup/pronation, elbow flex resisted, isometric flex/ext contract relax - Charges Timed Code Treatment Minutes: 43 Total Treatment Time: 43 Procedures billed for this date of service:: u/s, ex2 Assessment: Patient presents with mild soreness to the R lateral forearm along the pronator teres mm belly and at lateral epicondyle. He admits improved pain following u/s and appeared to adam all strengthening therex well. Corrected hand positioning on box handles to avoid forearm pain when lifting to trunk. Patient Education: Body/Joint mechanics Patient demonstrates compliance with HEP?: Yes Short Term Goals Goal #1: pt independent with initial HEP Goal to be met by: 04/01/18 Progress towards Goal:: Progressing Goal #2: Improve R elbow ROM flex 115 ext -8 Goal to be met by: 04/01/18 Progress towards Goal:: Met (Measured on 04/09/18 measuring -5/-6 to 124 degrees) Goal #3: Improve strength R elbow 4-/5, ext 3/5 Goal to be met by: 04/01/18 Progress towards Goal:: Met Silk Opener Goals Goal #1: pt report ability to perform normal household activities with less pain Goal to be met by: 04/22/18 Progress towards goal: Progressing Goal #2: Improve R elbow ROM flex 120 ext -4 Goal to be met by: 04/22/18 Progress towards goal: Partially Met (Patient has recently met flexion goal and does meet extension after stretching) Goal #3: Improve R UE strength 4 to 4+/5 Goal to be met by: 04/22/18 Progress towards goal: Met Goal #4: Edema R UE decreased equal to LUE. Goal to be met by: 04/22/18 Progress towards goal: Progressing Plan Dates of Alf Goals: 06/03/18 Expiration date of current Insurance Approval:: 06/03/18 PLAN: Patient to continue with order to further strengthen the R UE
== END 2018-05-13 23:59 ==
PROVIDERS: ATTEND Neuromusculoskeletal Medicine, Sports Medicine
DX: M25.521 Pain in right elbow (principal); M25.621 Stiffness of right elbow, not elsewhere classified; M19.021 Primary osteoarthritis, right elbow; M62.81 Muscle weakness (generalized); M25.421 Effusion, right elbow; Z98.890 Other specified postprocedural states

== ENCOUNTER 2018-06-03 13:00 | Outpatient (RCR) ==
--- NOTE | 2018-05-17 14:28 | RS.OPPTDN ---
Subjective Date of Note: 05/17/18 Visit #: 25 Number of visits approved by Insurance: 30 Date of Evaluation: 03/11/18 Payer Source: Workman's Comp Treatment Diagnosis: R elbow pain, DJD, elbow flex contracture, intraarticular loose bodies Current Subjective/complaints:: Patient says he did some work over the weekend, but pretty much rested from most remodeling tasks. He says his arm has felt good the past few days, but can still feel tightness and tenderness at the medial R elbow with extreme elbow flexion. *Precautions: n/a Interventions - Exercise/Activities/Manual Therapy Exercises/Activities: Stretching for passive extension/supination for R UE. Stretching also for flexion. Patient holding 5# dumbell for static streching for the above directions over small bolster. Joint mobilization and elbow joint distraction. 5# dumbell for wrist extension/flexion, ulnar/radial deviation x 10. Holding 5# dumbell at side for extension. Multigym for forward punches 10#, biceps, triceps, shoulder extension 10# 2x10, wall push ups x 10. Lifting 23# box with handles from ~2ft off of floor to trunk level 2x5, then trunk to overhead 2x5, then ~2ft from floor to overhead x 5 with proper body mechanics and being monitored for cues for correction x 7, Multigym for forward punches 2x10 with 10#. Total minutes of Exercise: 38 Manual Therapy: n/a HOME EXERCISE PROGRAM: instructed pt on retrograde massage to decrease edema, as well as gentle scar massage. 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 He only has medial elbow pain/ tightness along the ulnar nerve during extreme/terminal elbow flexion. All therex adam with only mild muscle fatigue. He is able to progress with weights for stretching and performing PREs against gravity with less difficulty. Patient Education: Activity Modification, Education of Plan of Care Patient demonstrates compliance with HEP?: Yes Short Term Goals Goal #1: pt independent with initial HEP Goal to be met by: 04/01/18 Progress towards Goal:: Progressing Goal #2: Improve R elbow ROM flex 115 ext -8 Goal to be met by: 04/01/18 Progress towards Goal:: Met (Measured on 04/09/18 measuring -5/-6 to 124 degrees) Goal #3: Improve strength R elbow 4-/5, ext 3/5 Goal to be met by: 04/01/18 Progress towards Goal:: Met Skin Pass Operator Goals Goal #1: pt report ability to perform normal household activities with less pain Goal to be met by: 04/22/18 Progress towards goal: Progressing Goal #2: Improve R elbow ROM flex 120 ext -4 Goal to be met by: 04/22/18 Progress towards goal: Partially Met (Patient has recently met flexion goal and does meet extension after stretching) Goal #3: Improve R UE strength 4 to 4+/5 Goal to be met by: 04/22/18 Progress towards goal: Met Goal #4: Edema R UE decreased equal to LUE. Goal to be met by: 04/22/18 Progress towards goal: Progressing Plan Dates of Retirement Goals: 06/03/18 Expiration date of current Insurance Approval:: 06/03/18 PLAN: Patient will continue to attend BIW and attend follow up with ortho MD .
--- NOTE | 2018-05-20 15:44 | RS.OPPTDN ---
Subjective Date of Note: 05/20/18 Visit #: 26 Number of visits approved by Insurance: 30 Date of Evaluation: 03/11/18 Payer Source: Workman's Comp Treatment Diagnosis: R elbow pain, DJD, elbow flex contracture, intraarticular loose bodies Current Subjective/complaints:: Patient c/o increase pain to the R lateral elbow. Says he knows he probably "worked" his arm too much over the past couple days. 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 He denies needing any modalities to soothe. *Precautions: n/a Pain Assessment - Pain Description Pain Location: Does not rate, but says elevated and staging technician strength is affected. Interventions - Exercise/Activities/Manual Therapy Exercises/Activities: Stretching for passive extension/supination for R UE. Patient holding 5# dumbell for static streching for the above directions over small bolster. 5# PREs for wrist flex/ext/sup/pron x 15. Radial/ulnar deviation x 15. Short range elbow flex, terminal extension x 15. Holding 5 # dumbell at side for extension. Lifting 23# box with handles from ~2ft off of floor to trunk level 2x5, Cues for proper body mechanics and being monitored for cues for correction x 7, 5# roll up bar x3. Bilateral shoulder abd with blue tband, punches, triceps, biceps with blue tband x 12. 6# bar for standing overhead elevation bilaterally. Total minutes of Exercise: 38 Manual Therapy: n/a HOME EXERCISE PROGRAM: instructed pt on retrograde massage to decrease edema, as well as gentle scar massage. Given written HEP including: sup/pronation, elbow flex resisted, isometric flex/ext contract relax - Charges Timed Code Treatment Minutes: 38 Total Treatment Time: 38 Procedures billed for this date of service:: ex3 Assessment: Patient presents with increased pain level to the lateral portion to the R elbow. This seems to be resulting from increased work level patient has been performing over the past few days. He wishes not to have any modalities to ease this pain today. Boom Worker was checked at beginning of treatment measuring only 62# on the R, which is ~15 # less than 1-2 weeks ago. Increased rest breaks are required today. ROM appears to be unchanged which is WFL for flex/ext/supination. Patient Education: Home Exercise Program, Home Safety Patient demonstrates compliance with HEP?: Yes Short Term Goals Goal #1: pt independent with initial HEP Goal to be met by: 04/01/18 Progress towards Goal:: Progressing Goal #2: Improve R elbow ROM flex 115 ext -8 Goal to be met by: 04/01/18 Progress towards Goal:: Met (Measured on 04/09/18 measuring -5/-6 to 124 degrees) Goal #3: Improve strength R elbow 4-/5, ext 3/5 Goal to be met by: 04/01/18 Progress towards Goal:: Met Snf Goals Goal #1: pt report ability to perform normal household activities with less pain Goal to be met by: 04/22/18 Progress towards goal: Progressing Goal #2: Improve R elbow ROM flex 120 ext -4 Goal to be met by: 04/22/18 Progress towards goal: Partially Met (Patient has recently met flexion goal and does meet extension after stretching) Goal #3: Improve R UE strength 4 to 4+/5 Goal to be met by: 04/22/18 Progress towards goal: Met Goal #4: Edema R UE decreased equal to LUE. Goal to be met by: 04/22/18 Progress towards goal: Progressing Plan Dates of Oyster Grader Goals: 06/03/18 Expiration date of current Insurance Approval:: 06/03/18 PLAN: Patient to continue BIW x 2 more weeks. Return to MD 05/31/18.
--- NOTE | 2018-05-24 14:23 | RS.OPPTDN ---
Subjective Date of Note: 05/24/18 Visit #: 27 Number of visits approved by Insurance: 30 Date of Evaluation: 03/11/18 Payer Source: Workman's Comp Treatment Diagnosis: R elbow pain, DJD, elbow flex contracture, intraarticular loose bodies Current Subjective/complaints:: Patient says that he rested from remodeling over the weekend. He says he doesn't have any pain to the R elbow today. He says that he had increase in pain last week, but feels much better today. *Precautions: n/a Interventions - Exercise/Activities/Manual Therapy Exercises/Activities: Stretching for passive extension/supination for R UE. Patient holding 5# dumbell and then 8# for static streching for elbow extension alongside his body then 5# for static supination over bolster. 5# PREs for wrist flex/ext/sup/pron x 15. Radial/ulnar deviation x 15. Short range elbow flex, terminal extension x 15. Coats tband for elbow extension, bilateral shoulder abd, 6# on wand for bilateral shoulder extension (holding bar behind back), 6# wand for bilateral shoulder flexion, wrist roll up bar with 5# on strap x3 all others x 10. Lifting 23# box with handles from ~2ft off of floor to trunk level 2x5, Cues for proper body mechanics and being monitored for cues for correction x 7. Total minutes of Exercise: 38 Manual Therapy: n/a HOME EXERCISE PROGRAM: instructed pt on retrograde massage to decrease edema, as well as gentle scar massage. Given written HEP including: sup/pronation, elbow flex resisted, isometric flex/ext contract relax - Objective Findings Observations,measurements,etc.: Copra Sampler post therex @ 89# 2nd position R hand - Charges Timed Code Treatment Minutes: 38 Total Treatment Time: 38 Procedures billed for this date of service:: ex3 Assessment: Patient's pain level is 0/10 today and adam all therex easier than previous session. Copra Sampler strength was affected last session as he had higher pain level and difficulty adam some of the routine exercises. 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 He has had to modify some activities at home such as when he is gathering and carrying in wood. He has to avoid gripping the piece and pronating to carry and poultry buyer and supinate and carry. Patient Education: Home Exercise Program, Education of Plan of Care Patient demonstrates compliance with HEP?: Yes Short Term Goals Goal #1: pt independent with initial HEP Goal to be met by: 04/01/18 Progress towards Goal:: Met Goal #2: Improve R elbow ROM flex 115 ext -8 Goal to be met by: 04/01/18 Progress towards Goal:: Met (Measured on 04/09/18 measuring -5/-6 to 124 degrees) Goal #3: Improve strength R elbow 4-/5, ext 3/5 Goal to be met by: 04/01/18 Progress towards Goal:: Met Slot Shift Manager Goals Goal #1: pt report ability to perform normal household activities with less pain Goal to be met by: 04/22/18 Progress towards goal: Progressing Goal #2: Improve R elbow ROM flex 120 ext -4 Goal to be met by: 04/22/18 Progress towards goal: Partially Met (Patient has recently met flexion goal and does meet extension after stretching) Goal #3: Improve R UE strength 4 to 4+/5 Goal to be met by: 04/22/18 Progress towards goal: Met Goal #4: Edema R UE decreased equal to LUE. Goal to be met by: 04/22/18 Progress towards goal: Progressing Plan Dates of Slot Shift Manager Goals: 06/03/18 Expiration date of current Insurance Approval:: 06/03/18 PLAN: Patient to continue BIW to strengthen the R UE
--- NOTE | 2018-05-26 14:35 | RS.OPPTDN ---
Subjective Date of Note: 05/26/18 Visit #: 28 Number of visits approved by Insurance: 30 Date of Evaluation: 03/11/18 Payer Source: Workman's Comp Treatment Diagnosis: R elbow pain, DJD, elbow flex contracture, intraarticular loose bodies Current Subjective/complaints:: Patient says he used large hand held brush trimmers recently possibly causing increased soreness to the lateral aspect of the R elbow. *Precautions: n/a Interventions - Exercise/Activities/Manual Therapy Exercises/Activities: Stretching for passive extension/supination for R UE. Patient holding 5# dumbell and then 8# for static streching for elbow extension alongside his body then 5# for static supination over bolster. 5# PREs for wrist flex/ext/sup/pron x 15. Radial/ulnar deviation x 15. Short range elbow flex, terminal extension x 15. Coats tband for elbow extension, bilateral shoulder abd, 6# on wand for bilateral shoulder extension (holding bar behind back), 7# wand for bilateral shoulder flexion, wrist roll up bar with 5# on strap x3 all others x 10. Lifting 28# box with handles from ~2ft off of floor to trunk level 2x5, then ~2ft from floor to overhead x5. Cues for proper body mechanics and being monitored for cues for correction. Total minutes of Exercise: 38 Manual Therapy: n/a HOME EXERCISE PROGRAM: instructed pt on retrograde massage to decrease edema, as well as gentle scar massage. Given written HEP including: sup/pronation, elbow flex resisted, isometric flex/ext contract relax - Charges Timed Code Treatment Minutes: 38 Total Treatment Time: 38 Procedures billed for this date of service:: ex3 Assessment: Patient able to adam progressed weights involving elbow extension and lifting box with heavier weight more controlled overhead and to trunk level. 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 Patient Education: Home Exercise Program, Activity Modification, Education of Plan of Care Patient demonstrates compliance with HEP?: Yes Short Term Goals Goal #1: pt independent with initial HEP Goal to be met by: 04/01/18 Progress towards Goal:: Met Goal #2: Improve R elbow ROM flex 115 ext -8 Goal to be met by: 04/01/18 Progress towards Goal:: Met (Measured on 04/09/18 measuring -5/-6 to 124 degrees) Goal #3: Improve strength R elbow 4-/5, ext 3/5 Goal to be met by: 04/01/18 Progress towards Goal:: Met [facility] Goals Goal #1: pt report ability to perform normal household activities with less pain Goal to be met by: 04/22/18 Progress towards goal: Progressing Goal #2: Improve R elbow ROM flex 120 ext -4 Goal to be met by: 04/22/18 Progress towards goal: Partially Met (Patient has recently met flexion goal and does meet extension after stretching) Goal #3: Improve R UE strength 4 to 4+/5 Goal to be met by: 04/22/18 Progress towards goal: Met Goal #4: Edema R UE decreased equal to LUE. Goal to be met by: 04/22/18 Progress towards goal: Progressing Plan Dates of [facility] Goals: 06/03/18 Expiration date of current Insurance Approval:: 06/03/18 PLAN: Patient to continue x 2 more sessions then follow up with his MD.
--- NOTE | 2018-06-01 16:15 | RS.OPPTDN ---
Subjective Date of Note: 06/01/18 Visit #: 29 Number of visits approved by Insurance: 30 Date of Evaluation: 03/11/18 Payer Source: Workman's Comp Treatment Diagnosis: R elbow pain, DJD, elbow flex contracture, intraarticular loose bodies Current Subjective/complaints:: Patient states he just had his follow up appt went well presenting a script for BIW x 3 weeks. Patient says he would like us to work more on extension for the R elbow. He says he has been released to return to work. *Precautions: n/a Interventions - Exercise/Activities/Manual Therapy Exercises/Activities: Stretching for passive extension/supination for R UE. Patient holding 5# dumbell and then 8# for static streching for elbow extension alongside his body then 5# for static supination over bolster as well as elbow extension with arm supinated and in neutral position. 5# PREs for wrist flex/ ext/sup/pron x 15. Radial/ulnar deviation x 15. Short range elbow flex, terminal extension x 15. Coats tband for elbow extension, bilateral shoulder abd, Increased to 7# on wand for bilateral shoulder extension (holding bar behind back), Wand for bilateral shoulder flexion, wrist roll up bar with 7# on strap x3 all others x 10. 30# for scap retraction at multigym, forward punches 20# 2x15 ea, more time spent on stretching for elbow extension today. Total minutes of Exercise: 44 Manual Therapy: n/a HOME EXERCISE PROGRAM: instructed pt on retrograde massage to decrease edema, as well as gentle scar massage. Given written HEP including: sup/pronation, elbow flex resisted, isometric flex/ext contract relax - Charges Timed Code Treatment Minutes: 44 Total Treatment Time: 44 Procedures billed for this date of service:: ex3 Assessment: Patient has new order to continue x 6 more sessions for elbow extension. He has been released to return to work. 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 Pain is present at the R lateral elbow along the pronator teres. Patient Education: Home Exercise Program, Education of Plan of Care Patient demonstrates compliance with HEP?: Yes Short Term Goals Goal #1: pt independent with initial HEP Goal to be met by: 04/01/18 Progress towards Goal:: Met Goal #2: Improve R elbow ROM flex 115 ext -8 Goal to be met by: 04/01/18 Progress towards Goal:: Met (Measured on 04/09/18 measuring -5/-6 to 124 degrees) Goal #3: Improve strength R elbow 4-/5, ext 3/5 Goal to be met by: 04/01/18 Progress towards Goal:: Met Engineering Operator Goals Goal #1: pt report ability to perform normal household activities with less pain Goal to be met by: 04/22/18 Progress towards goal: Progressing Goal #2: Improve R elbow ROM flex 120 ext -4 Goal to be met by: 04/22/18 Progress towards goal: Partially Met (Patient has recently met flexion goal and does meet extension after stretching) Goal #3: Improve R UE strength 4 to 4+/5 Goal to be met by: 04/22/18 Progress towards goal: Met Goal #4: Edema R UE decreased equal to LUE. Goal to be met by: 04/22/18 Progress towards goal: Progressing Plan Dates of [facility] Goals: 06/03/18 Expiration date of current Insurance Approval:: 06/03/18 PLAN: Continue with new order x 6 sessions if approved
--- NOTE | 2018-06-03 14:43 | RS.OPPTDN ---
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 He says he is unsure if he will get the next 6 visits approved per MD order. *Precautions: n/a Interventions - Exercise/Activities/Manual Therapy Exercises/Activities: Stretching for passive extension/supination for R UE. Patient holding 8# dumbell for static streching for elbow extension alongside his body and then over bolster stretching for extension with elbow supination and then in neutral. Increased to 8# PREs for wrist flex/ext/sup/pron x 15. Radial/ulnar deviation x 15. Short range elbow flex, terminal extension x 15. Coats tband for elbow extension, bilateral shoulder abd, Increased to 8# on wand for bilateral shoulder extension (holding bar behind back), Wand for bilateral shoulder flexion, wrist roll up bar with 7# on strap x3 all others x 10. 30# for scap retraction at multigym, forward punches 20# 2x15 ea, more time spent on stretching for elbow extension today. 4# on wrist for bouncing ball against the wall using the R arm only multiple times. Lifting 28# box using palm up on handles from floor to chest high x 7 then palm down with good body mechanics x 5. Patient completes UE Functional Index and also assessed clearance coordinator. Total minutes of Exercise: 42 Manual Therapy: n/a HOME EXERCISE PROGRAM: instructed pt on retrograde massage to decrease edema, as well as gentle scar massage. Given written HEP including: sup/pronation, elbow flex resisted, isometric flex/ext contract relax - Objective Findings Observations,measurements,etc.: Elementary School Counselor strength: R--95#, 100#. L--115#. 60/80 or 25% impairment (This is improvement since 04-22-18 measuring 80# and 45/80 or 54% impairment) - Charges Timed Code Treatment Minutes: 42 Total Treatment Time: 42 Procedures billed for this date of service:: ex3 Assessment: Patient has demo increased UE Functional score, clearance coordinator strength, and ROM regarding elbow extension with aggressive stretching to -5 to -6 degrees. This has been a consistent average at this point. We are working on getting the next 6 visits approved per MD order BIW x 3 weeks. We will continue to work on general strength and elbow extension. Patient Education: Home Exercise Program, Education of Plan of Care Patient demonstrates compliance with HEP?: Yes Short Term Goals Goal #1: pt independent with initial HEP Goal to be met by: 04/01/18 Progress towards Goal:: Met Goal #2: Improve R elbow ROM flex 115 ext -8 Goal to be met by: 04/01/18 Progress towards Goal:: Met (Measured on 04/09/18 measuring -5/-6 to 124 degrees) Goal #3: Improve strength R elbow 4-/5, ext 3/5 Goal to be met by: 04/01/18 Progress towards Goal:: Met Detention Goals Goal #1: pt report ability to perform normal household activities with less pain Goal to be met by: 04/22/18 Progress towards goal: Met Goal #2: Improve R elbow ROM flex 120 ext -4 Goal to be met by: 04/22/18 Progress towards goal: Partially Met (Patient has recently met flexion goal and does meet extension after stretching) Goal #3: Improve R UE strength 4 to 4+/5 Goal to be met by: 04/22/18 Progress towards goal: Met Goal #4: Edema R UE decreased equal to LUE. Goal to be met by: 04/22/18 Progress towards goal: Progressing Plan Dates of Homemaking Rehabilitation Consultant Goals: 06/03/18 Expiration date of current Insurance Approval:: 06/03/18 PLAN: Patient has completed orders at this time. We are in the process of getting his final 6 sessions approved.
== END 2018-06-13 23:59 ==
PROVIDERS: ATTEND Neuromusculoskeletal Medicine, Sports Medicine
DX: M25.521 Pain in right elbow (principal); M25.621 Stiffness of right elbow, not elsewhere classified; M62.81 Muscle weakness (generalized); M25.421 Effusion, right elbow; M19.021 Primary osteoarthritis, right elbow; Z98.890 Other specified postprocedural states

== ENCOUNTER 2018-07-01 13:00 | Outpatient (RCR) ==
--- NOTE | 2018-06-15 08:42 | RS.PTSUM ---
Progress Note/Summary Date of Note: 06/14/18 Date of Evaluation: 03/11/18 Number of Visits: 31 Number of visits approved by Insurance: currently have 5 more visits approved after today Reporting Period for this Progress Note: 03/11/18-06/14/18 Current Complaints/Gains: pt reports that the MD told him he could return to work without any restrictions. pt states he has been trying to use arm more. 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 Objective Measurements/Presentation: R elbow ROM flex 125 ext -8 AAROM. Girth measurements: R elbow 29.7cm. L elbow 29.5 cm. Collar Pointer strength: R elbow 84#, L elbow 106#. Rates pain 2-05/23. R UE strength biceps 5/5, triceps 4/5 G Codes: n/a Source of G Code Score: n/a - Short Term Goals Goal #1: pt independent with initial HEP Goal to be met by: 04/01/18 Progress towards Goal:: Met Goal #2: Improve R elbow ROM flex 115 ext -8 Goal to be met by: 04/01/18 Progress towards Goal:: Met (Measured on 04/09/18 measuring -5/-6 to 124 degrees) Goal #3: Improve strength R elbow 4-/5, ext 3/5 Goal to be met by: 04/01/18 Progress towards Goal:: Met - Penitentiary Goals Goal #1: pt report ability to perform normal household activities with less pain Goal to be met by: 04/22/18 (met 06/14/18) Progress towards goal: Met Goal #2: Improve R elbow ROM ext -5 AROM Goal to be met by: 07/02/18 (goal modified 06/14/18) Goal #3: Improve automat watcher strength RUE 90# Goal to be met by: 07/02/18 (new goal) Goal #4: pt reports able to use RUE while working without increased pain Goal to be met by: 07/02/18 (new goal) - Assessment Assessment of Improvement/Progress: pt has met all STG's and LTG's 1, 3, 4. New LTG 2, 3, 4 made this date. pt has made significant progress with R elbow ROM, strength as well as decreased edema. Feel pt may benefit from continued PT with focus on automat watcher strength, R elbow ext ROM, as well as tricep strengthening. Summary: Patient has made progress towards goals., Patient demonstrates potential to gain increased function with therapy - Plan Plan: Continue Plan of Care Frequency: 2 X week Duration: 3 weeks Dates of [facility]iary Goals: 07/02/18 Expiration date of current Insurance Approval:: 07/02/18
--- NOTE | 2018-06-16 09:10 | RS.OPPTDN ---
Subjective Date of Note: 06/14/18 Visit #: 31 Number of visits approved by Insurance: approved 6 more (after visit 30) Date of Evaluation: 03/11/18 Payer Source: Workman's Comp Treatment Diagnosis: R elbow pain, DJD, elbow flex contracture, intraarticular loose bodies Current Subjective/complaints:: Patient reports using the R arm as much as possible,alsohoping to get more elbow extension. *Precautions: n/a Interventions - Exercise/Activities/Manual Therapy Exercises/Activities: 25 mins. of multiple reps. of contract-relax to biceps, pronators/supinators,followed by static stretches to biceps.R elbow extension is -8 actively ,-6 to -5 passively . Total minutes of Exercise: 25 Manual Therapy: 30 mins. deep tissue massage to forearm and biceps. Total minutes of Manual Therapy: 30 HOME EXERCISE PROGRAM: instructed pt on retrograde massage to decrease edema, as well as gentle scar massage. Given written HEP including: sup/pronation, elbow flex resisted, isometric flex/ext contract relax - Charges Timed Code Treatment Minutes: 55 Total Treatment Time: 55 Procedures billed for this date of service:: ex 2,manual 2 Assessment: Patient does have increased elbow extension after treatment ,but reports pain at -5 degrees today.The strength is progressing ,doing more ADL's with less difficulty.He does report muscle cramps in the forearm ,but understands this should improve as the muscles become more conditioned. Patient Education: Education of diagnosis, Body/Joint mechanics, Home Exercise Program, Home Safety, Activity Modification, Education of Plan of Care Patient demonstrates compliance with HEP?: Yes Short Term Goals Goal #1: pt independent with initial HEP Goal to be met by: 04/01/18 Progress towards Goal:: Met Goal #2: Improve R elbow ROM flex 115 ext -8 Goal to be met by: 04/01/18 Progress towards Goal:: Met (Measured on 04/09/18 measuring -5/-6 to 124 degrees) Goal #3: Improve strength R elbow 4-/5, ext 3/5 Goal to be met by: 04/01/18 Progress towards Goal:: Met Software Engineering Manager Goals Goal #1: pt report ability to perform normal household activities with less pain Goal to be met by: 04/22/18 (met 06/14/18) Progress towards goal: Met Goal #2: Improve R elbow ROM ext -5 AROM Goal to be met by: 07/02/18 (goal modified 06/14/18) Progress towards goal: Progressing (-5 achieved ,but not consistent,and causes pain) Goal #3: Improve jewelry manager strength RUE 90# Goal to be met by: 07/02/18 (new goal) Goal #4: pt reports able to use RUE while working without increased pain Goal to be met by: 07/02/18 (new goal) Plan Dates of [facility] Goals: 07/02/18 Expiration date of current Insurance Approval:: 07/02/18 PLAN: Cont. skilled PT to achieve maximum strength and elbow extension.
--- NOTE | 2018-06-17 15:06 | RS.OPPTDN ---
Subjective Date of Note: 06/17/18 Visit #: 32 Number of visits approved by Insurance: 30 + 6 Date of Evaluation: 03/11/18 Payer Source: Workman's Comp Treatment Diagnosis: R elbow pain, DJD, elbow flex contracture, intraarticular loose bodies Current Subjective/complaints:: Reports muscle soreness only today ,but minimal. *Precautions: n/a - Heat/Cryotherapy Treatment: Hot Pack (15 mins. prior to exercise and manual ) Interventions - Exercise/Activities/Manual Therapy Exercises/Activities: 15 mins. of multiple reps. of using gripper,then static stretches to elbow flexors.AROM is -8 ,assive is -6 to -5. Total minutes of Exercise: 15 Manual Therapy: 25 mins. deep tissue massage to forearm and biceps. Total minutes of Manual Therapy: 25 HOME EXERCISE PROGRAM: instructed pt on retrograde massage to decrease edema, as well as gentle scar massage. Given written HEP including: sup/pronation, elbow flex resisted, isometric flex/ext contract relax - Charges Timed Code Treatment Minutes: 40 Total Treatment Time: 50 Procedures billed for this date of service:: hp,US,ex Assessment: Patient ahs increased overall strength and ROM ,but no measureable change today ,compared to last session.He is compliant to HEP. Patient Education: Home Safety, Activity Modification, Education of Plan of Care Patient demonstrates compliance with HEP?: Yes Short Term Goals Goal #1: pt independent with initial HEP Goal to be met by: 04/01/18 Progress towards Goal:: Met Goal #2: Improve R elbow ROM flex 115 ext -8 Goal to be met by: 04/01/18 Progress towards Goal:: Met (Measured on 04/09/18 measuring -5/-6 to 124 degrees) Goal #3: Improve strength R elbow 4-/5, ext 3/5 Goal to be met by: 04/01/18 Progress towards Goal:: Met [facility] Goals Goal #1: pt report ability to perform normal household activities with less pain Goal to be met by: 04/22/18 (met 06/14/18) Progress towards goal: Met Goal #2: Improve R elbow ROM ext -5 AROM Goal to be met by: 07/02/18 (goal modified 06/14/18) Progress towards goal: No Change (-5 achieved ,but not consistent,is less pain ful today) Goal #3: Improve machine designer strength RUE 90# Goal to be met by: 07/02/18 (new goal) Progress towards goal: No Change Comments: 85# x 3 Goal #4: pt reports able to use RUE while working without increased pain Goal to be met by: 07/02/18 (new goal) Plan Dates of Chief [employer] Goals: 07/02/18 Expiration date of current Insurance Approval:: 07-02-18 PLAN: Cont PT per 's. orders.
--- NOTE | 2018-06-21 15:31 | RS.OPPTDN ---
Subjective Date of Note: 06/21/18 Visit #: 33 Number of visits approved by Insurance: 36 Date of Evaluation: 03/11/18 Payer Source: Workman's Comp Treatment Diagnosis: R elbow pain, DJD, elbow flex contracture, intraarticular loose bodies Current Subjective/complaints:: Patient says he bent his R elbow over the weekend while performing a task and felt increased pain. He says it is a little better now. *Precautions: n/a Interventions - Exercise/Activities/Manual Therapy Exercises/Activities: 40 mins total. Intervals of static stretching with 5# dumbell for elbow extension over bolster, passive stretching, joint mobs grades II-III, contract/relax, 8# dumbell for elbow at side to stretch elbow extension. Able to achieve consistently -5 degrees through stretching. Manual Therapy: na HOME EXERCISE PROGRAM: instructed pt on retrograde massage to decrease edema, as well as gentle scar massage. Given written HEP including: sup/pronation, elbow flex resisted, isometric flex/ext contract relax - Charges Timed Code Treatment Minutes: 40 Total Treatment Time: 40 Procedures billed for this date of service:: ex3 Assessment: Patient continues to maintain extension to -5 consistently with stretching. Mod increase in pain with elbow flexion as pt performing weekend tasks. Avoided this position today and focused on mobility instead of strengthening. Patient Education: Education of Plan of Care Patient demonstrates compliance with HEP?: Yes Short Term Goals Goal #1: pt independent with initial HEP Goal to be met by: 04/01/18 Progress towards Goal:: Met Goal #2: Improve R elbow ROM flex 115 ext -8 Goal to be met by: 04/01/18 Progress towards Goal:: Met (Measured on 04/09/18 measuring -5/-6 to 124 degrees) Goal #3: Improve strength R elbow 4-/5, ext 3/5 Goal to be met by: 04/01/18 Progress towards Goal:: Met Reflexologist Goals Goal #1: pt report ability to perform normal household activities with less pain Goal to be met by: 04/22/18 (met 06/14/18) Progress towards goal: Met Goal #2: Improve R elbow ROM ext -5 AROM Goal to be met by: 07/02/18 (goal modified 06/14/18) Progress towards goal: No Change (-5 achieved ,but not consistent,is less pain ful today) Goal #3: Improve international sales manager strength RUE 90# Goal to be met by: 07/02/18 (new goal) Progress towards goal: No Change Goal #4: pt reports able to use RUE while working without increased pain Goal to be met by: 07/02/18 (new goal) Plan Dates of Retirement Goals: 07/02/18 Expiration date of current Insurance Approval:: 07/02/18 PLAN: Continue x 3 more sessions, then discharge
--- NOTE | 2018-06-24 16:29 | RS.OPPTDN ---
Subjective Date of Note: 06/24/18 Visit #: 34 Number of visits approved by Insurance: 36 Date of Evaluation: 03/11/18 Payer Source: Workman's Comp Treatment Diagnosis: R elbow pain, DJD, elbow flex contracture, intraarticular loose bodies Current Subjective/complaints:: Patient says he continues to have intermittent audible non-pain producing popping with extending the elbow. 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 *Precautions: n/a - Heat/Cryotherapy Treatment: Cryotherapy (15 mins surrounding the R elbow in extension following therex.) Interventions - Exercise/Activities/Manual Therapy Exercises/Activities: 40 mins total. Focused on motion and returning to modified strengthening exercises. Intervals of static stretching with 8# dumbell for elbow extension over bolster, passive stretching, joint mobs grades II-III, contract/relax for extension/flex, and supination, wrist curls and extension with 8# PRE's, 8# dumbell for elbow at side to stretch elbow extension. Coats tband for triceps/biceps x 20 reps. therapy wand with 7# on R end for elbow and shoulder extension behind back x 15 and bilateral shoulder elevation above head x 20. Received further stretching. [employer] Coordinator tested at 2nd position reading 90#, then 92#. Manual Therapy: na HOME EXERCISE PROGRAM: instructed pt on retrograde massage to decrease edema, as well as gentle scar massage. Given written HEP including: sup/pronation, elbow flex resisted, isometric flex/ext contract relax - Charges Timed Code Treatment Minutes: 40 Total Treatment Time: 55 Procedures billed for this date of service:: cp, ex3 Assessment: Improved duty manager strength consistently measuring avg 90# today. He is consistently demo improved elbow extension to -5 with stretching. 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 Goals Goal #1: pt report ability to perform normal household activities with less pain Goal to be met by: 04/22/18 (met 06/14/18) Progress towards goal: Met Goal #2: Improve R elbow ROM ext -5 AROM Goal to be met by: 07/02/18 (goal modified 06/14/18) Progress towards goal: No Change (-5 achieved ,but not consistent,is less pain ful today) Goal #3: Improve duty manager strength RUE 90# Goal to be met by: 07/02/18 (new goal) Progress towards goal: Partially Met Comments: Met today and previously demo 100# after therex, but needs maintain consist Goal #4: pt reports able to use RUE while working without increased pain Goal to be met by: 07/02/18 (new goal) Progress towards goal: Progressing Plan Dates of [facility] Goals: 07/02/18 Expiration date of current Insurance Approval:: 07/02/18 PLAN: Continue x 2 more sessions, then plan for d/c
--- NOTE | 2018-07-01 16:46 | RS.OPPTDN ---
Subjective Date of Note: 07/01/18 Visit #: 36 Number of visits approved by Insurance: 36 Date of Evaluation: 03/11/18 Payer Source: Workman's Comp Treatment Diagnosis: R elbow pain, DJD, elbow flex contracture, intraarticular loose bodies Current Subjective/complaints:: Patient says he feels his elbow is as straight as it's going to get. He says he continues to work on it often and uses it with all yardwork/household tasks. He reports the only thing he has not tried is throwing a softball/baseball. States prior to sx, he could only pitch to his daughter about 5 mins before he had to stop. Says he will return to his ortho ~07/12/18. *Precautions: n/a Pain Assessment - Pain Description Pain Location: Only slight tenderness now to the medial aspect of the elbow Interventions - Exercise/Activities/Manual Therapy Exercises/Activities: 40 mins total. Focused on motion and strengthening exercises. Intervals of static stretching with 8# dumbell for elbow extension over bolster, passive stretching, joint mobs grades II-III, contract/relax for elbow extension/flex, and supination, wrist curls and extension and elbow flexion with 8# PRE's, 8# dumbell for elbow at side to stretch elbow extension. Throwing tennis ball overhand ~ 30' against the wall and catching x 7times. Multigym for scap retraction 20#, 30# 2x15. Coats tband pull downs, push bar attachment on multigym for chest press 40#, then 60# in standing 2x15 reps. Body blade for bilateral UE elevation and biceps x 30 sec's to 1 min, Measurements taken, Charter Representative strength assessed, and UE Functional Index completed. Manual Therapy: na HOME EXERCISE PROGRAM: instructed pt on retrograde massage to decrease edema, as well as gentle scar massage. Given written HEP including: sup/pronation, elbow flex resisted, isometric flex/ext contract relax - Objective Findings Observations,measurements,etc.: Charter Representative 2nd position: 91# (R). 105# (L). Elbow extension -3 after aggressive stretching and strengthening exercises at end of session. -6 at rest (L elbow is not at 0 degrees, measures -4). . UE Functional Index: 68/80 or 15% impairment compared to eval of 37/80 or 54% impairment - Charges Timed Code Treatment Minutes: 40 Total Treatment Time: 40 Procedures billed for this date of service:: ex3 Assessment: Patient has made significant progress with ROM, strength, function. He is pleased at this point and feels he will and can still make further progress with general strength away from therapy. He will return to see his ortho at the end of this month and agrees to continue to work on HEP and gave him a tennis ball to work on throwing and catching against his wall. Patient Education: Home Exercise Program, Education of Plan of Care Patient demonstrates compliance with HEP?: Yes Short Term Goals Goal #1: pt independent with initial HEP Goal to be met by: 04/01/18 Progress towards Goal:: Met Goal #2: Improve R elbow ROM flex 115 ext -8 Goal to be met by: 04/01/18 Progress towards Goal:: Met (Measured on 04/09/18 measuring -5/-6 to 124 degrees) Goal #3: Improve strength R elbow 4-/5, ext 3/5 Goal to be met by: 04/01/18 Progress towards Goal:: Met Eyeglass Lens Grinder Goals Goal #1: pt report ability to perform normal household activities with less pain Goal to be met by: 04/22/18 (met 06/14/18) Progress towards goal: Met Goal #2: Improve R elbow ROM ext -5 AROM Goal to be met by: 07/02/18 (goal modified 06/14/18) Progress towards goal: Met (-5 achieved ,but not consistent,is less pain ful today) Comments: -3 after therex and -5 at rest Goal #3: Improve supervisor policy 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 Patient has completed continuation order. Follow up with 07/12/18.
== END 2018-07-13 23:59 ==
PROVIDERS: ATTEND Neuromusculoskeletal Medicine, Sports Medicine
DX: M25.521 Pain in right elbow (principal); M25.621 Stiffness of right elbow, not elsewhere classified; M62.81 Muscle weakness (generalized); M25.421 Effusion, right elbow; M19.021 Primary osteoarthritis, right elbow; Z98.890 Other specified postprocedural states